=== PATIENT | male | born 1945 | race Caucasian/White ===

== ENCOUNTER 2017-01-14 11:04 | Emergency (ER) | payer OTHER ==
[~2017-01-14] VITALS: Ht 177.8 cm; Wt 81.6 kg
--- NOTE | 2017-01-14 11:09 | PHYS DOC ---
Past Medical History Past Medical History: High Cholesterol, Prostatitis Past Surgical History: Appendectomy, Other Additional Past Surgical Histo: bilateral hip replacements Alcohol Use: Occasionally Drug Use: None Adult General Chief Complaint Chief Complaint: URINARY RETENTION HPI HPI Patient is a 71 year old male who presents with. He states the last time he urinated was last night. He states he's been having suprapubic discomfort and that's why came in the ER. He had one episode of vomiting last night, he denies any vomiting this morning. States he feels fine now that he's had a Hein catheter placed he denies any nausea vomiting or abdominal pain at this time. Review of Systems Review of Systems Constitutional: Denies fever or chills [] Eyes: Denies change in visual acuity, redness, or eye pain [] HENT: Denies nasal congestion or sore throat [] Respiratory: Denies cough or shortness of breath [] Cardiovascular: No additional information not addressed in HPI [] GI: Denies abdominal pain, nausea, vomiting, bloody stools or diarrhea [] : Denies dysuria or hematuria [] Musculoskeletal: Denies back pain or joint pain [] Integument: Denies rash or skin lesions [] Neurologic: Denies headache, focal weakness or sensory changes [] Endocrine: Denies polyuria or polydipsia [] Allergies Allergies Allergies Coded Allergies Type Severity Reaction Last Updated Verified No Known Drug Allergies 10/15/14 No Physical Exam Physical Exam Constitutional: Well developed, well nourished, no acute distress, non-toxic appearance. [] HENT: Normocephalic, atraumatic, bilateral external ears normal, oropharynx moist, no oral exudates, nose normal. [] Eyes: PERRLA, EOMI, conjunctiva normal, no discharge. [] Neck: Normal range of motion, no tenderness, supple, no stridor. [] Cardiovascular:Heart rate regular rhythm, no murmur [] Lungs & Thorax: Bilateral breath sounds clear to auscultation [] Abdomen: Bowel sounds normal, soft, no tenderness, no masses, no pulsatile masses. [] Skin: Warm, dry, no erythema, no rash. [] Back: No tenderness, no CVA tenderness. [] Extremities: No tenderness, no cyanosis, no clubbing, ROM intact, no edema. [] Neurologic: Alert and oriented X 3, normal motor function, normal sensory function, no focal deficits noted. [] Psychologic: Affect normal, judgement normal, mood normal. [] Current Patient Data Vital Signs Vital Signs Date Time Temp Pulse Resp B/P (MAP) Pulse Ox O2 Delivery O2 Flow Rate FiO2 01/14/17 11:12 98.2 75 20 161/72 (101) 97 Room Air 98.2 Lab Values Laboratory Tests Test 01/14/17 11:25 01/14/17 12:20 Urine Collection Type Unknown Urine Color Yellow Urine Clarity Clear Urine pH 5.5 Urine Specific [place] 1.010 Urine Protein Negative mg/dL (NEG-TRACE) Urine Glucose (UA) Negative mg/dL (NEG) Urine Ketones (Stick) Trace mg/dL (NEG) Urine Blood Trace (NEG) Urine Nitrite Negative (NEG) Urine Bilirubin Negative (NEG) Urine Urobilinogen Dipstick 0.2 mg/dL (0.2 mg/dL) Urine Leukocyte Esterase Negative (NEG) Urine RBC Occ /HPF (0-2) Urine WBC 0 /HPF (0-4) Urine Squamous Epithelial Cells Occ /LPF Urine Bacteria 0 /HPF (0-FEW) Urine Mucus Slight /LPF White Blood Count 10.4 x10^3/uL (4.0-11.0) Red Blood Count 4.31 x10^6/uL (4.30-5.70) Hemoglobin 13.8 g/dL (13.0-17.5) Hematocrit 41.0 % (39.0-53.0) Mean Corpuscular Volume 95 fL (79-100) Mean Corpuscular Hemoglobin 32 pg (25-35) Mean Corpuscular Hemoglobin Concent 34 g/dL (31-37) Red Cell Distribution Width 14.0 % (11.5-14.5) Platelet Count 238 x10^3/uL (140-400) Neutrophils (%) (Auto) 90 % (31-73) H Lymphocytes (%) (Auto) 5 % (24-48) L Monocytes (%) (Auto) 4 % (0-9) Eosinophils (%) (Auto) 0 % (0-3) Basophils (%) (Auto) 0 % (0-3) Neutrophils # (Auto) 9.4 x10^3uL (1.8-7.7) H Lymphocytes # (Auto) 0.5 x10^3/uL (1.0-4.8) L Monocytes # (Auto) 0.4 x10^3/uL (0.0-1.1) Eosinophils # (Auto) 0.0 x10^3/uL (0.0-0.7) Basophils # (Auto) 0.0 x10^3/uL (0.0-0.2) Platelet Estimate Pending Sodium Level 135 mmol/L (136-145) L Potassium Level 4.5 mmol/L (3.5-5.1) Chloride Level 99 mmol/L (98-107) Carbon Dioxide Level 21 mmol/L (21-32) Anion Gap 15 (6-14) H Blood Urea Nitrogen 24 mg/dL (8-26) Creatinine 1.2 mg/dL (0.7-1.3) Estimated GFR (Cockcroft-Gault) 59.3 BUN/Creatinine Ratio 20 (6-20) Glucose Level 97 mg/dL (70-99) Calcium Level 9.2 mg/dL (8.5-10.1) Total Bilirubin 0.8 mg/dL (0.2-1.0) Aspartate Amino Transferase (AST) 25 U/L (15-37) Alanine Aminotransferase (ALT) 26 U/L (16-63) Alkaline Phosphatase 73 U/L (46-116) Total Protein 7.5 g/dL (6.4-8.2) Albumin 3.9 g/dL (3.4-5.0) Albumin/Globulin Ratio 1.1 (1.0-1.7) Laboratory Tests 01/14/17 12:20 Laboratory Tests 01/14/17 12:20 EKG EKG [] Radiology/Procedures Radiology/Procedures [] Impressions: Urinary retention Course & Med Decision Making Course & Med Decision Making Pertinent Labs and Imaging studies reviewed. (See chart for details) Abscess nonacute. Hein catheter was inserted without any issues. No signs of infections or renal failure. Patient's being discharged with urology follow-up at [facility]. Patient's agreeable plan and being discharged in stable condition this time. Dragon Disclaimer Dragon Disclaimer This electronic medical record was generated, in whole or in part, using a voice recognition dictation system. Departure Departure Impression: Primary Impression: Urinary retention Disposition: 01 HOME, SELF-CARE Condition: STABLE Referrals: NO PCP (PCP) Patient Instructions: Indwelling Urinary Catheter Care-Brief Additional Instructions: You have troubles urinating and therefore Hein catheter was placed. He does not show any signs of infection or other abnormalities at this time. He remained discharged home. Please follow-up with on [facility] urology group. Their addresses [address] [place] [address]. Office phone number: [phone] Return ER if you have severe pain, your Hein catheter is not draining, he developed fevers or other concerns. BARI VARELA MD Jan 14, 2017 11:09
[2017-01-14 11:12] VITALS: BP 161/72
[2017-01-14 11:36] LABS: BILIRUBIN,URINE NEGATIVE (NEG); GLUCOSE,URINE NEGATIVE (NEG); NITRITE,URINE NEGATIVE (NEG); PH,URINE 5.5; PROTEIN,URINE NEGATIVE (NEG-TRACE); UROBILINOGEN,URINE 0.2 mg/dL (0.2 mg/dL)
[2017-01-14 11:58] LABS: BACTERIA,URINE 0 /HPF (0-FEW); RBC,URINE OCC /HPF (0-2); SQUAMOUS EPITHELIAL CELL,UR OCC /LPF; WBC,URINE 0 /HPF (0-4)
[2017-01-14 12:28] LABS: BASO % 0 % (0-3); EOS % 0 % (0-3); HEMOGLOBIN 13.8 g/dL (13.0-17.5); LYMPH # 0.5 x10^3/uL (1.0-4.8); LYMPH % 5 % (24-48); MEAN CORPUSCULAR HEMOGLOBIN 32 pg (25-35); MEAN CORPUSCULAR HGB CONC 34 g/dL (31-37); MEAN CORPUSCULAR VOLUME 95 fL (79-100); MONO % 4 % (0-9); NEUT % 90 % (31-73); PLATELET COUNT 238 x10^3/uL (140-400); RED BLOOD COUNT 4.31 x10^6/uL (4.30-5.70); WHITE BLOOD COUNT 10.4 x10^3/uL (4.0-11.0)
[2017-01-14 12:51] LABS: CALCIUM 9.2 mg/dL (8.5-10.1); CREATININE 1.2 mg/dL (0.7-1.3); GFR 59.3; POTASSIUM 4.5 mmol/L (3.5-5.1)
[2017-01-14 12:58] LABS: ALBUMIN 3.9 g/dL (3.4-5.0); ALBUMIN/GLOBULIN RATIO 1.1 (1.0-1.7); TOTAL BILIRUBIN 0.8 mg/dL (0.2-1.0); TOTAL PROTEIN 7.5 g/dL (6.4-8.2)
[2017-01-14 13:59] LABS: PLT ESTIMATE ADEQUATE (ADEQUATE); TOXIC GRANULATION MOD
== END 2017-01-14 13:45 | disposition home or self-care (01) ==
LOC: ER 11:04
DX: R33.9 Retention of urine, unspecified (principal); R10.30 Lower abdominal pain, unspecified; R11.10 Vomiting, unspecified; E78.00 Pure hypercholesterolemia, unspecified; Z90.49 Acquired absence of other specified parts of digestive tract
CPT/HCPCS: 36415; 51702; 80053; 81001; 85007; 85025; 99284-25

== ENCOUNTER 2020-09-17 20:09 | Emergency (ER) | payer MEDICARE, OTHER ==
[~2020-09-17] VITALS: Ht 177.8 cm; Wt 75.0 kg
--- NOTE | 2020-09-17 20:25 | ED.ADGEN ---
Past Medical History Past Medical History: High Cholesterol, Prostatitis Additional Past Medical Histor: Lyme dx Past Surgical History: Appendectomy, Other Additional Past Surgical Histo: bilateral hip replacements Smoking Status: Never Smoker Alcohol Use: Occasionally Drug Use: None General Adult EDM: Chief Complaint: FLANK PAIN HPI: HPI: Patient is a 75 year old male coming in for right flank pain over the past few days. Patient says the pain comes and goes and is sharp. Says he has had urinary frequency without dysuria or hematuria. No fevers. States has had nonproductive occasional cough. States he has had some constipation and straining with small bowel movements. Recently had an ablation for A. fib and is currently anticoagulated with Eliquis. Denies any fevers or vomiting. Denies any history of kidney stones Review of Systems: Review of Systems: All other systems within normal limits except for as noted in the HPI Current Medications: Current Medications Medications (Trade) Dose Ordered Sig/Jakob Start Time Stop Time Status Last Admin Dose Admin Ceftriaxone Sodium (Rocephin) 1 gm 1X ONCE 09/17/20 23:00 09/17/20 23:01 UNV Fentanyl Citrate (Fentanyl 2ml Vial) 75 mcg 1X ONCE 09/17/20 20:30 09/17/20 20:31 DC 09/17/20 20:43 75 MCG Info (CONTRAST GIVEN -- Rx MONITORING) 1 each PRN DAILY PRN 09/17/20 21:45 09/19/20 21:44 Iohexol (Omnipaque 300 Mg/ml) 75 ml 1X ONCE 09/17/20 21:45 09/17/20 21:46 DC 09/17/20 21:44 75 ML Allergies: Allergies: Allergies Coded Allergies Type Severity Reaction Last Updated Verified No Known Drug Allergies 10/15/14 No Physical Exam: PE: Constitutional: Well developed, well nourished, no acute distress, non-toxic appearance. [] HENT: Normocephalic, atraumatic, bilateral external ears normal, nose normal. [] Eyes: PERRLA, conjunctiva normal, no discharge. [] Neck: No rigidity, supple, no stridor. [] Cardiovascular: Regular rate and rhythm, brisk cap refill [] Lungs & Thorax: Non labored symmetric respirations, no tachypnea or respiratory distress [] Abdomen: Soft, nondistended, right upper quadrant tenderness and guarding. Skin: Warm, dry, no erythema, no rash. [] Back: Unremarkable, no tenderness deformity of spine, right CVA tenderness Extremities: No deformities, range of motion grossly intact, no lower extremity edema [] Neurologic: Alert and oriented X 3, no focal deficits noted. [] Psychologic: Affect normal, judgement normal, mood normal. [] Current Patient Data: Labs: Laboratory Tests Test 09/17/20 20:40 09/17/20 22:32 White Blood Count 9.7 x10^3/uL (4.0-11.0) Red Blood Count 4.26 x10^6/uL (4.30-5.70) L Hemoglobin 13.3 g/dL (13.0-17.5) Hematocrit 38.6 % (39.0-53.0) L Mean Corpuscular Volume 91 fL (79-100) Mean Corpuscular Hemoglobin 31 pg (25-35) Mean Corpuscular Hemoglobin Concent 34 g/dL (31-37) Red Cell Distribution Width 14.0 % (11.5-14.5) Platelet Count 264 x10^3/uL (140-400) Neutrophils (%) (Auto) 71 % (31-73) Lymphocytes (%) (Auto) 16 % (24-48) L Monocytes (%) (Auto) 11 % (0-9) H Eosinophils (%) (Auto) 2 % (0-3) Basophils (%) (Auto) 1 % (0-3) Neutrophils # (Auto) 6.9 x10^3/uL (1.8-7.7) Lymphocytes # (Auto) 1.5 x10^3/uL (1.0-4.8) Monocytes # (Auto) 1.1 x10^3/uL (0.0-1.1) Eosinophils # (Auto) 0.2 x10^3/uL (0.0-0.7) Basophils # (Auto) 0.1 x10^3/uL (0.0-0.2) Sodium Level 139 mmol/L (136-145) Potassium Level 4.1 mmol/L (3.5-5.1) Chloride Level 104 mmol/L (98-107) Carbon Dioxide Level 24 mmol/L (21-32) Anion Gap 11 (6-14) Blood Urea Nitrogen 25 mg/dL (8-26) Creatinine 1.1 mg/dL (0.7-1.3) Estimated GFR (Cockcroft-Gault) 64.9 BUN/Creatinine Ratio 23 (6-20) H Glucose Level 103 mg/dL (70-99) H Calcium Level 9.2 mg/dL (8.5-10.1) Phosphorus Level 4.4 mg/dL (2.6-4.7) Magnesium Level 1.8 mg/dL (1.8-2.4) Total Bilirubin 0.7 mg/dL (0.2-1.0) Aspartate Amino Transferase (AST) 15 U/L (15-37) Alanine Aminotransferase (ALT) 33 U/L (16-63) Alkaline Phosphatase 77 U/L (46-116) Troponin I Quantitative < 0.017 ng/mL (0.000-0.055) MI-Pej-V-Type Natriuretic Peptide 179 pg/mL (0-449) Total Protein 6.8 g/dL (6.4-8.2) Albumin 3.7 g/dL (3.4-5.0) Albumin/Globulin Ratio 1.2 (1.0-1.7) Lipase 125 U/L (73-393) Urine Collection Type Unknown Urine Color Yellow Urine Clarity Clear Urine pH 5.5 (<5.0-8.0) Urine Specific [place] >=1.030 (1.000-1.030) Urine Protein Negative mg/dL (NEG-TRACE) Urine Glucose (UA) Negative mg/dL (NEG) Urine Ketones (Stick) Negative mg/dL (NEG) Urine Blood Trace (NEG) Urine Nitrite Negative (NEG) Urine Bilirubin Negative (NEG) Urine Urobilinogen Dipstick 1.0 mg/dL (0.2 mg/dL) Urine Leukocyte Esterase Large (NEG) Urine RBC Occ /HPF (0-2) Urine WBC >40 /HPF (0-4) Urine Bacteria Few /HPF (0-FEW) Urine Mucus Mod /LPF Laboratory Tests 09/17/20 20:40 Laboratory Tests 09/17/20 20:40 Vital Signs: Vital Signs Date Time Temp Pulse Resp B/P (MAP) Pulse Ox O2 Delivery O2 Flow Rate FiO2 09/17/20 22:30 65 18 143/73 (96) 99 Room Air 09/17/20 20:24 98.2 98.2 EKG: EKG: Sinus rhythm, heart rate 70 bpm, left axis deviation, left anterior fascicular block, no ST elevation or depression, no ectopy. [] Heart Score: C/O Chest Pain: No Risk Factors: Risk Factors: DM, Current or recent (<one month) smoker, HTN, HLP, family history of CAD, obesity. Risk Scores: Score 0 - 3: 2.5% MACE over next 6 weeks - Discharge Home Score 4 - 6: 20.3% MACE over next 6 weeks - Admit for Clinical Observation Score 7 - 10: 72.7% MACE over next 6 weeks - Early Invasive Strategies Radiology/Procedures: Radiology/Procedures: [facility] [address] [place] [address] IMAGING REPORT Signed PATIENT: KAYE WOODRUFF LACCOUNT: [id number] : 1945 LOCATION: ER AGE: 75 SEX: M EXAM STATUS: REG ER ORD. PHYSICIAN: ALONSO JAIMES MD REASON: right flank pain PROCEDURE: CT ABD PELV W/ IV CONTRST ONLY Study: CT abdomen/pelvis with intravenous contrast Indication: Right flank pain. Comparison: 11/14/2014 Technique: Helical CT imaging performed of the abdomen and pelvis after the intravenous administration of iodinated contrast. Sagittal and coronal reformats were obtained. One or more of the following individualized dose reduction techniques were utilized for this examination: 1. Automated exposure control 2. Adjustment of the mA and/or kV according to patient size 3. Use of iterative reconstruction technique. Findings: Calcific coronary artery disease. No acute abnormality seen to involve the lower lungs. A few areas of pleural mineralization. No focal hepatic parenchymal abnormality. Unremarkable gallbladder, biliary tree, pancreas, spleen and adrenal glands. Faint heterogeneous cortical attenuation at the upper pole of the right kidney, images 37 and 38 series 4. Perinephric fat stranding bilaterally also present on the comparison. No hydronephrosis. Hindered assessment of the urinary bladder due to streak artifact. Mild wall thickening. Incompletely evaluated prostate. Scattered diverticuli without diverticulitis. The cecum is again seen to extend into the right upper quadrant. The appendix is not well visualized. Mild constipation. Fecalization of enteric contents distally suggesting slowed transit. No pathologic dilatation. The stomach is incompletely evaluated due to underdistention. Tortuous aorta without aneurysmal dilatation. Multifocal calcific atherosclerosis. 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 In 2014 this vessel measured 1.7 cm representing no significant mold insert changer 6 years. No suspicious lymph nodes based on size. No free fluid or pneumoperitoneum. Osteopenia. Bilateral total hip arthroplasty constructs. Advanced multilevel spondylosis. Osseous neural foraminal stenosis at several locations in addition to central canal narrowing. Impression: 1. Faintly heterogeneous attenuation of the renal cortex at the upper pole on the right. This may be artifactual or chronic though mild pyelonephritis is possible especially given reported right flank pain. Recommend correlation with urinalysis. No collecting system obstruction or stone. 2. Mild constipation. 3. Multiple chronic findings described in the body the report. Electronically signed by: SASCHA SANCHEZ MD (09/17/2020 10:08 PM) [facility] DICTATED and SIGNED BY: SASCHA SANCHEZ MD DATE: 09/17/20 [id number] [] Course & Med Decision Making: Course & Med Decision Making Pertinent Labs and Imaging studies reviewed. (See chart for details) [] Dragon Disclaimer: Dragon Disclaimer: This electronic medical record was generated, in whole or in part, using a voice recognition dictation system. Departure Departure Impression: Primary Impression: Pyelonephritis Disposition: HOME / SELF CARE / HOMELESS Condition: STABLE Referrals: UNKNOWN PCP NAME (PCP) Patient Instructions: Pyelonephritis, Adult Additional Instructions: Taken [id number] stool softener such as MiraLAX or senna to prevent constipation while using hydrocodone. Scripts Hydrocodone/Acetaminophen (Hydrocodone-Acetamin 5-325 mg) 1 Each Tablet 1 EACH PO PRN Q6-8HRS PRN for PAIN for 3 Days, #10 TAB Prov: ALONSO JAIMES MD 09/17/20 Ondansetron (ONDANSETRON ODT) 4 Mg Tab.rapdis 1 TAB PO PRN Q6-8HRS PRN for NAUSEA for 3 Days, #10 TAB Prov: ALONSO JAIMES MD 09/17/20 Cephalexin (CEPHALEXIN) 500 Mg Capsule 1 CAP PO QID for antibiotic for 10 Days, #40 CAP Prov: ALONSO JAIMES MD 09/17/20 ALONSO JAIMES MD Sep 17, 2020 20:25
[2020-09-17] MEDS ORDERED: fentaNYL PF VIAL 100 MCG/2 ML VIAL IVP ONE (20:30)
[2020-09-17 20:52] LABS: BASO # 0.1 x10^3/uL (0.0-0.2); BASO % 1 % (0-3); EOS # 0.2 x10^3/uL (0.0-0.7); EOS % 2 % (0-3); HEMATOCRIT 38.6 % (39.0-53.0); HEMOGLOBIN 13.3 g/dL (13.0-17.5); LYMPH # 1.5 x10^3/uL (1.0-4.8); LYMPH % 16 % (24-48); MEAN CORPUSCULAR HEMOGLOBIN 31 pg (25-35); MEAN CORPUSCULAR HGB CONC 34 g/dL (31-37); MEAN CORPUSCULAR VOLUME 91 fL (79-100); MONO # 1.1 x10^3/uL (0.0-1.1); MONO % 11 % (0-9); NEUT # 6.9 x10^3/uL (1.8-7.7); NEUT % 71 % (31-73); PLATELET COUNT 264 x10^3/uL (140-400); RED BLOOD COUNT 4.26 x10^6/uL (4.30-5.70); WHITE BLOOD COUNT 9.7 x10^3/uL (4.0-11.0)
[2020-09-17 21:05] LABS: CALCIUM 9.2 mg/dL (8.5-10.1); CREATININE 1.1 mg/dL (0.7-1.3); GFR 64.9; POTASSIUM 4.1 mmol/L (3.5-5.1)
[2020-09-17 21:11] LABS: ALBUMIN 3.7 g/dL (3.4-5.0); ALBUMIN/GLOBULIN RATIO 1.2 (1.0-1.7); MAGNESIUM 1.8 mg/dL (1.8-2.4); PHOSPHORUS 4.4 mg/dL (2.6-4.7); TOTAL BILIRUBIN 0.7 mg/dL (0.2-1.0); TOTAL PROTEIN 6.8 g/dL (6.4-8.2)
[2020-09-17] MEDS ORDERED: IOHEXOL 300 MG/ML 100ML VIAL. IV ONE (21:45)
[2020-09-17] MEDS ORDERED: CONTRAST GIVEN. MC PRN (21:45)
--- NOTE | 2020-09-17 22:10 | RAD ---
Study: CT abdomen/pelvis with intravenous contrast Indication: Right flank pain. Comparison: 11/14/2014 Technique: Helical CT imaging performed of the abdomen and pelvis after the intravenous administratio n of iodinated contrast. Sagittal and coronal reformats were obtained. One or more of the following individualized dose reduction techniques were utilized for this examinat ion: 1. Automated exposure control 2. Adjustment of the mA and/or kV according to patient size 3. Use of iterative reconstruction technique. Findings: Calcific coronary artery disease. No acute abnormality seen to involve the lower lungs. A few areas o f pleural mineralization. No focal hepatic parenchymal abnormality. Unremarkable gallbladder, biliary tree, pancreas, spleen an d adrenal glands. Faint heterogeneous cortical attenuation at the upper pole of the right kidney, janee ges 37 and 38 series 4. Perinephric fat stranding bilaterally also present on the comparison. No hydr onephrosis. Hindered assessment of the urinary bladder due to streak artifact. Mild wall thickening. Incompletely evaluated prostate. Scattered diverticuli without diverticulitis. The cecum is again seen to extend into the right upper quadrant. The appendix is not well visualized. Mild constipation. Fecalization of enteric contents di stally suggesting slowed transit. No pathologic dilatation. The stomach is incompletely evaluated due to underdistention. Tortuous aorta without aneurysmal dilatation. Multifocal calcific atherosclerosis. Aneurysmal dilatat ion of the common iliac artery measuring up to 1.8 cm. In 2014 this vessel measured 1.7 cm representi ng no significant chemical cell changer 6 years. No suspicious lymph nodes based on size. No free fluid or pneumoperitoneum. Osteopenia. Bilateral total hip arthroplasty constructs. Advanced multilevel spondylosis. Osseous vlad ral foraminal stenosis at several locations in addition to central canal narrowing. Impression: 1. Faintly heterogeneous attenuation of the renal cortex at the upper pole on the right. This may be artifactual or chronic though mild pyelonephritis is possible especially given reported right flank pain. Recommend correlation with urinalysis. No collecting system obstruction or stone. 2. Mild constipation. 3. Multiple chronic findings described in the body the report. Electronically signed by: SASCHA SANCHEZ MD (09/17/2020 10:08 PM) [facility]
[2020-09-17 22:45] LABS: BILIRUBIN,URINE NEGATIVE (NEG); CLARITY,URINE CLEAR; COLOR,URINE YELLOW; NITRITE,URINE NEGATIVE (NEG); PH,URINE 5.5 (<5.0-8.0); PROTEIN,URINE NEGATIVE (NEG-TRACE)
[2020-09-17 22:55] LABS: BACTERIA,URINE FEW /HPF (0-FEW); RBC,URINE OCC /HPF (0-2); WBC,URINE >40 /HPF (0-4)
[2020-09-17] MEDS ORDERED: cefTRIAXone IV Push 1 GM VIAL. IVP ONE (23:00)
[2020-09-17] MEDS ORDERED: HYDR-2759 PO (23:07)
[2020-09-17] MEDS ORDERED: CEPH500C PO (23:07)
[2020-09-17] MEDS ORDERED: ONDA4TAB12 PO (23:07)
--- NOTE | 2020-09-17 23:09 | EKG ---
[facility] [address] [place] [address] Test Date: 2020-09-17 Test Time: 20:32:38 Pat Name: KAYE WOODRUFF Department: Room: Gender: M [employer]: : 1945 Requested By: ALONSO JAIMES Order Number: [id number] Reading MD: Measurements Intervals [place] Rate: 70 P: 0 AL: 196 QRS: -33 QRSD: 98 T: 19 QT: 426 QTc: 463 Interpretive Statements SINUS RHYTHM ABNORMAL LEFT AXIS DEVIATION LEFT ANTERIOR FASCICULAR BLOCK ABNORMAL ECG RI6.01 No previous ECG available for comparison
[2020-09-17 23:14] VITALS: BP 130/63
[2020-09-17] MEDS ORDERED: HYDROcodone/APAP 5/325MG 1 TAB TABLET PO ONE (23:15)
== END 2020-09-17 23:41 | disposition home or self-care (01) ==
LOC: ER 20:09
DX: N12 Tubulo-interstitial nephritis, not specified as acute or chronic (principal); E78.00 Pure hypercholesterolemia, unspecified; Z90.89 Acquired absence of other organs
CPT/HCPCS: 36415; 74177; 80053; 81001; 83690; 83735; 83880; 84100; 84484; 85025; 87086; 93005; 96374; 96375; 99284; J0696; J3010; Q9967; 99285-25

== ENCOUNTER 2020-11-07 12:10 | Emergency (ER) | payer MEDICARE ==
[~2020-11-07] VITALS: Ht 176.5 cm; Wt 79.5 kg
[~2020-11-07 12:10] MED LIST: CEPH500C PO; HYDR-2759 PO; ONDA4TAB12 PO
[2020-11-07 12:44] LABS: BILIRUBIN,URINE NEGATIVE (NEG); CLARITY,URINE CLEAR; COLOR,URINE YELLOW; NITRITE,URINE NEGATIVE (NEG); PROTEIN,URINE NEGATIVE (NEG-TRACE)
[2020-11-07] MEDS ORDERED: IV NORMAL SALINE 1000ML BAG 1,000 ML IV ONE (13:00)
[2020-11-07 13:05] LABS: RBC,URINE 0 /HPF (0-2)
[2020-11-07 13:06] LABS: BACTERIA,URINE 0 /HPF (0-FEW)
[2020-11-07 13:20] LABS: BASO % 1 % (0-3); EOS # 0.2 x10^3/uL (0.0-0.7); EOS % 2 % (0-3); HEMATOCRIT 37.2 % (39.0-53.0); HEMOGLOBIN 12.5 g/dL (13.0-17.5); LYMPH # 1.3 x10^3/uL (1.0-4.8); LYMPH % 14 % (24-48); MEAN CORPUSCULAR HEMOGLOBIN 32 pg (25-35); MEAN CORPUSCULAR HGB CONC 34 g/dL (31-37); MEAN CORPUSCULAR VOLUME 95 fL (79-100); MONO # 1.2 x10^3/uL (0.0-1.1); MONO % 13 % (0-9); NEUT # 6.4 x10^3/uL (1.8-7.7); NEUT % 71 % (31-73); PLATELET COUNT 290 x10^3/uL (140-400); RED BLOOD COUNT 3.93 x10^6/uL (4.30-5.70); RED CELL DISTRIBUTION WIDTH 17.1 % (11.5-14.5); WHITE BLOOD COUNT 9.1 x10^3/uL (4.0-11.0)
--- NOTE | 2020-11-07 13:20 | PHYS DOC ---
Past Medical History Past Medical History: High Cholesterol, Prostatitis Additional Past Medical Histor: Lyme dx, PROSTATE [place], PYELONEPHRITIS, Past Surgical History: Appendectomy, Other Additional Past Surgical Histo: bilateral hip replacements, ablation cardiac Smoking Status: Never Smoker Alcohol Use: Occasionally Drug Use: None General Adult EDM: Chief Complaint: LOWER BACK PAIN OR INJURY HPI: HPI: 75-year-old male presenting the emergency department today with right-sided flank pain. He has a history of pyelonephritis and describes very similar symptoms. It is a throbbing aching pain on the right flank which is nonradiating without alleviating factors. Review of systems negative for chest pain shortness of breath. He denies vomiting fevers chills. He has had some changes in urinary frequency. All other review of systems negative. Heart Score: C/O Chest Pain: No Risk Factors: Risk Factors: DM, Current or recent (<one month) smoker, HTN, HLP, family hist ory of CAD, obesity. Risk Scores: Score 0 - 3: 2.5% MACE over next 6 weeks - Discharge Home Score 4 - 6: 20.3% MACE over next 6 weeks - Admit for Clinical Observation Score 7 - 10: 72.7% MACE over next 6 weeks - Early Invasive Strategies Current Medications: Current Medications Medications (Trade) Dose Ordered Sig/Jakob Start Time Stop Time Status Last Admin Dose Admin Sodium Chloride 1,000 ml @ 1,000 mls/hr 1X ONCE 11/07/20 13:00 11/07/20 13:59 Allergies: Allergies: Allergies Coded Allergies Type Severity Reaction Last Updated Verified No Known Drug Allergies 10/15/14 No Physical Exam: PE: Constitutional: Well developed, well nourished, no acute distress, non-toxic appearance. [] HENT: Normocephalic, atraumatic, bilateral external ears normal, oropharynx moist, no oral exudates, nose normal. [] Eyes: PERRLA, EOMI, conjunctiva normal, no discharge. [] Neck: Normal range of motion, no tenderness, supple, no stridor. [] Cardiovascular:Heart rate regular rhythm, no murmur [] Lungs & Thorax: Bilateral breath sounds clear to auscultation [] Abdomen: Bowel sounds normal, soft, no tenderness, no masses, no pulsatile masses. [] Patient has right-sided CVA tenderness. Negative McBurney's point. Negative Mcgovern sign. Skin: Warm, dry, no erythema, no rash. [] Back: No tenderness, no CVA tenderness. [] Extremities: No tenderness, no cyanosis, no clubbing, ROM intact, no edema. [] Neurologic: Alert and oriented X 3, normal motor function, normal sensory function, no focal deficits noted. [] Psychologic: Affect normal, judgement normal, mood normal. [] Current Patient Data: Labs: Laboratory Tests Test 11/07/20 12:30 Urine Collection Type Void Urine Color Yellow Urine Clarity Clear Urine pH 6.0 (<5.0-8.0) Urine Specific [place] 1.015 (1.000-1.030) Urine Protein Negative mg/dL (NEG-TRACE) Urine Glucose (UA) Negative mg/dL (NEG) Urine Ketones (Stick) Negative mg/dL (NEG) Urine Blood Negative (NEG) Urine Nitrite Negative (NEG) Urine Bilirubin Negative (NEG) Urine Urobilinogen Dipstick 1.0 mg/dL (0.2 mg/dL) Urine Leukocyte Esterase Trace (NEG) Urine RBC 0 /HPF (0-2) Urine WBC 5-10 /HPF (0-4) Urine Squamous Epithelial Cells Few /LPF Urine Bacteria 0 /HPF (0-FEW) Vital Signs: Vital Signs Date Time Temp Pulse Resp B/P (MAP) Pulse Ox O2 Delivery O2 Flow Rate FiO2 11/07/20 12:47 98.6 62 12 120/64 (85) 95 Room Air 98.6 EKG: EKG: [] Radiology/Procedures: Radiology/Procedures: [] Course & Med Decision Making: Course & Med Decision Making Pertinent Labs and Imaging studies reviewed. (See chart for details) [] 75-year-old male presenting with right-sided flank pain. Afebrile normal heart rate. Blood pressure within normal limits. CBC shows a normal white blood cell count. Hemoglobin 12.5. Chemistry panel unremarkable. Lactic acid within normal limits. Urinalysis negative for nitrates. Trace leuk esterase. No bacteria. CT shows persistent mild hypoattenuation which may reflect focal pyelonephritis. UA is equivocal. We will cover with oral Keflex for 10 days with Flexeril for pain. Patient comfortable with plan. Yana Disclaimer: Yana Disclaimer: This electronic medical record was generated, in whole or in part, using a voice recognition dictation system. Departure Departure Impression: Primary Impression: Flank pain Disposition: HOME / SELF CARE / HOMELESS Condition: STABLE Referrals: RANI METZ MD (PCP) Patient Instructions: Back Pain, Adult, Pyelonephritis, Adult Additional Instructions: EMERGENCY DEPARTMENT GENERAL DISCHARGE INSTRUCTIONS Follow-up with your primary physician in 1 to 2 days. Return to the emergency department if you have any new or concerning findings. Thank you for coming to [facility] Emergency Department (ED) today and trusting us with you care. We trust that you had a positive experience in our Emergency Department. If you wish to speak to the department management, you may call the Director at [phone]. Follow up is important in emergency/acute care visits. This condition should be evaluated by your primary care physician and any necessary consulting services for continued management within a few days (1-2) after discharge. Return to the emergency department if you have any new or concerning symptoms including but not limited to fever, chills, nausea, vomiting, intractable pain, any new rashes, chest pain, shortness of breath, uncontrolled bleeding, difficulty breathing, and/or vision loss. 1. Do you have a private Doctor? If you do not have a private doctor, please ask for a resource list of physicians or clinics that may be able to assist you with follow up care. 2. If a lab test or culture has been done and does not come back immediately, your results will be reviewed and you will be notified if you need a change in treatment. 3. Your care today has been supervised by a physician who is specially trained in emergency care. Many problems require more than one evaluation for a complete diagnosis and treatment. We recommend that you schedule your follow up appointment as recommended to ensure complete treatment of you illness or injury. If you are unable to obtain follow up care and continue to have a problem, or if your condition worsens, we recommend that you return to the ED. 4. We are not able to safely determine your condition over the phone nor are we able to give sound medical advice over the phone. For these safety reasons, if you call for medical advice we will ask you to come to the ED for further evaluation. IF YOUR SYMPTOMS WORSEN OR NEW SYMPTOMS DEVELOP, OR YOU HAVE CONCERNS ABOUT YOUR CONDITION; OR IF YOUR CONDITION WORSENS WHILE YOU ARE WAITING FOR YOUR FOLLOW UP APPOINTMENT; EITHER CONTACT YOUR PRIMARY CARE DOCTOR, THE PHYSICIAN WHOSE NAME AND NUMBER YOU WERE GIVEN, OR RETURN TO THE ED IMMEDIATELY. Scripts Cephalexin (KEFLEX) 750 Mg Capsule 1 CAP PO BID for 10 Days, #20 CAP 0 Refills Prov: STARR GUTIERREZ MD 11/07/20 Cyclobenzaprine Hcl (CYCLOBENZAPRINE HCL) 5 Mg Tablet 1 TAB PO TID PRN for BACK PAIN, #8 TAB 0 Refills Prov: STARR GUTIERREZ MD 11/07/20 STARR GUTIERREZ MD Nov 07, 2020 13:20
[2020-11-07 13:26] LABS: CALCIUM 8.9 mg/dL (8.5-10.1); CREATININE 0.9 mg/dL (0.7-1.3); GFR 81.8; POTASSIUM 4.1 mmol/L (3.5-5.1)
[2020-11-07 13:32] LABS: ALBUMIN 3.2 g/dL (3.4-5.0); DIRECT BILIRUBIN 0.2 mg/dL (0.0-0.2); TOTAL BILIRUBIN 0.8 mg/dL (0.2-1.0); TOTAL PROTEIN 6.5 g/dL (6.4-8.2)
[2020-11-07] MEDS ORDERED: IOHEXOL 300 MG/ML 100ML VIAL. IV ONE (14:30)
[2020-11-07] MEDS ORDERED: CONTRAST GIVEN. MC PRN (14:45)
--- NOTE | 2020-11-07 15:11 | RAD ---
Exam: CT abdomen and pelvis with contrast INDICATION: Right flank pain TECHNIQUE: Sequential axial images through the abdomen and pelvis obtained following the administrati on of 75 mL of Omni 300 IV contrast. Sagittal and coronal reformatted images were reconstructed from the axial data and reviewed. Exposure: One or more of the following in the visualized dose reduction techniques were utilized for this examination: 1. Automated exposure control 2. Adjustment of the MA and/or KV according to patient size 3. Use of iterative of reconstructive technique Comparisons: 09/17/2020 FINDINGS: Heart size is normal. No pericardial strandy opacities the dependent portion lungs likely representin g atelectasis. No pleural effusion. Liver, spleen, pancreas, gallbladder and adrenals are unremarkable. No perinephric inflammation or hydronephrosis. This is an area of a hypoenhancement at the upper pole the right kidney. No renal or ureteral calculi are identified. Bladder is partially distended and appears thin-walled. Prostate is not enlarged. Diverticulosis without evidence of acute diverticulitis. Otherwise, Large and small bowel are unremar kable. Appendix is not identified. No free intra-abdominal air or fluid. No obstruction. Abdominal aorta has a normal course and caliber. Abdominal vasculature is patent. No enlarged abdominal lymph nodes are identified. No suspicious osseous lesions acute fractures. IMPRESSION: Persistent mild hypoenhancement of the upper pole of the right kidney nonspecific as before could rel ate to a mild focal pyelonephritis. Other differential considerations include sequela of prior injury . Correlate with urinalysis. Electronically signed by: Robert Ahn MD (11/07/2020 3:09 PM) [place]
[2020-11-07 17:16] VITALS: BP 121/62
[2020-11-07] MEDS ORDERED: CEPH750C9 PO (17:21)
[2020-11-07] MEDS ORDERED: CYCL5TAB PO (17:21)
== END 2020-11-07 17:35 | disposition home or self-care (01) ==
LOC: ER 12:10
DX: R10.9 Unspecified abdominal pain (principal); E78.00 Pure hypercholesterolemia, unspecified; Z90.89 Acquired absence of other organs
CPT/HCPCS: 36415; 74177; 80048; 80076; 81001; 83605; 83690; 85025; 87086; 96360; 99284; J7030; Q9967

== ENCOUNTER → 2020-12-18 | Outpatient (CLI) | payer MEDICARE ==
[~2020-12-18] MED LIST changes: +AMLO-187 PO; +AMOX875T PO; +APIX5TAB PO; +ASCO500C PO; +CEPH750C9 PO; +CYCL5TAB PO; +EZET10TA20 PO; +GABA-585 PO; +LIPITOR80 MG PO; +METO25TA2 PO; +OMEG1CAP38 PO; +PANT40TA77 PO; +[UNRECOGNIZED DRUG - CODE] PO
--- NOTE | 2020-12-18 12:40 | PDOC1 ---
INITIAL PAIN CONSULT DATE OF SERVICE: DOS: DATE: 12/18/20 TIME: 12:33 CHIEF COMPLAINT: Chief Complaint: Low back and right lower extremity pain HISTORY OF PRESENT ILLNESS: 75-year-old male presents history of pain low back right lower extremity for about 10 years and he fell about 4 years ago and hurt his right hip area but pain became much worse over the past year where normal modalities are not decreasing the pain patient has had physical therapy said chiropractic treatment in the past is doing exercise currently also had trigger point injections which none of these have been long-lasting help but do decrease the pain mildly patient reports he still doing the exercises from his physical therapy training reports the pain is in the low back bilaterally and travels into the right leg posterior gluteus posterior lateral thigh lateral anterior thigh anteromedial thigh medial lower leg and posterior calf as well as to the ankle on the right side with walking standing patient reports is better with sitting or laying down can awaken him sleep maybe once a night patient reports does not affect his bowel bladder control but does affect his ability to walk however is not use any assistive devices. Patient scribes pain is constant sharp stabbing throbbing and shooting in the leg on the right side intermittent intensity in the back changes during the day and with activity cramping in the back as well patient rates disability rating 0-10 10 made worse as before standing responsibilities and social activity and sexual behavior 8 with recreation 3 with occupational behavior to with self-care life support activities. Patient did have plain films of the lumbar spine showing normal sacrum and coccyx with marked disc space narrowing and vacuum disc changes present at the L4-5 and L5-S1 levels. Patient has been taking [id number] anti-inflammatories Motrin as well as analgesics Tylenol with mild decrease in pain but only by about 30%. PAST MEDICAL HISTORY: PMH: Hypertension, arthritis, gastroesophageal reflux, atrial fibrillation, recent kidney infection PREVIOUS SURGERIES: Past Surgical Hx: Bilateral hip replacements, appendectomy, prostate surgery, cardiac ablation CURRENT MEDICATIONS: Current Meds: Active Scripts Medications Dose Route/Sig Max Daily Dose Days Date Category Amoxicillin 875 Mg Tablet 1 Tab PO DAILY 12/18/20 Reported Gabapentin (Gabapentin) 100 Mg Capsule 100 Mg PO BID 12/18/20 Reported Pantoprazole Sodium (Pantoprazole Sodium) 40 Mg Tablet.dr 40 Mg PO DAILYAC 12/18/20 Reported [place] 3 Fish Oil Softgel ([place]trim-3 Fatty Acids/Fish Oil) 1 Each Capsule.dr 1 Each PO DAILY 12/18/20 Reported Toprol Xl (Metoprolol Succinate) 25 Mg Tab.er.24h 12.5 Mg PO DAILY 12/18/20 Reported Glucosamine Sulfate 500 Mg Capsule 500 Mg PO DAILY 12/18/20 Reported Zetia (Ezetimibe) 10 Mg Tablet 1 Tab PO DAILY 30 12/18/20 Reported Lipitor (Atorvastatin Calcium) 80 Mg Tablet 1 Tab PO DAILY 12/18/20 Reported Vitamin C (Ascorbic Acid) 500 Mg Capsule.er 1 Cap PO DAILY 30 12/18/20 Reported Eliquis (Apixaban) 5 Mg Tablet 5 Mg PO BID 12/18/20 Reported Amlodipine Besylate 10 Mg Tablet 10 Mg PO DAILY 12/18/20 Reported ALLERGIES; Allergies: Coded Allergies: No Known Drug Allergies (Unverified , 10/15/14) FAMILY HISTORY: Family Hx: Heart disease and cancers SOCIAL HISTORY: Social Hx: Patient drinks about 3 alcoholic drinks maybe twice a week does not smoke does not use any illegal illicit or recreational drugs, is lives with his spouse lives locally in [facility] and 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 PHYSICAL EXAM: VS: Blood pressure is 118/65 pulse 73 respirations 16 temperature 98.1 F height is 5 feet 10 inches weight 174 pounds. PE: PHYSICAL EXAMINATION: GENERAL: The patient is awake, alert, oriented, appropriate, very pleasant in demeanor. HEENT: Shows normocephalic, atraumatic. Extraocular movements are intact and symmetrical. Oral cavity: Mucous membranes moist and pink. NECK: Shows anterior throat supple without palpable lymphadenopathy noted. Swallow reflex symmetrical. CHEST: Shows normal on inspection. Breath sounds are clear bilaterally, distant but no rales or rhonchi auscultated. HEART: Shows S1, S2 clear. No murmurs auscultated. ABDOMEN: Soft, nontender, nondistended, obese. No palpable organomegaly is noted. No rebound or guarding demonstrated. BACK: Shows spine grossly in the midline. Normal-appearing cervical lordotic curvature. There is increased thoracic kyphosis, some minor flattening of the lumbar lordotic curvature. Lumbar paraspinous muscles show symmetrical on inspection, on palpation shows some moderate tenderness diffusely throughout the upper, middle and lower distribution of the paraspinous muscles bilaterally and also into the lower thoracic paraspinous musculature, firm and tender, but witho ut specific trigger points, without radiation of pain. The patient has good rotational motion of the lumbar spine, both laterally as well as extension and flexion without significant difficulty. No tenderness over the spinous processes, sacrum or sacroiliac regions. EXTREMITIES: Lower extremities show deep tendon reflexes 1 in the patellar and tendo calcaneus tendons. Motor exam is 4 on a scale of 5 with right dorsiflexion, extension, quadriceps and hamstring flexion and 5/5 on the left. Peripheral pulses are 1 posterior tibial. No peripheral edema is noted bilaterally. Lower extremities are warm and dry to touch, equal in color and appearance. Straight leg raise noted to be positive on the right about 35 degrees, left side is negative. Gaenslen's and Juan Antonio's maneuvers are negative bilaterally. The patient is able to stand, stand on his toes without significant difficulty or loss of balance, walks with a slight favoring gait does appear to favor the right lower extremity slightly but is not use any assistive devices to ambulate. SKIN: Shows warm and dry, good turgor. No edema. No sores, rashes or bruising throughout. IMPRESSION: Impression: 75-year-old male with long history low back right lower extremity pain worse over the past year in a radicular fashion following L4-5 dermatomal distribution. Plain films lumbar spine as noted Arthritis Hypertension Esophageal reflux Anticoagulation therapy with Eliquis Plan: Options were discussed with the patient including continued physical therapies interventional techniques and medication management. Patient would like to pursue interventional techniques. We discussed a lumbar epidural steroid injection using description as well as anatomical models to describe the procedure. Patient will wait for preauthorization with his insurance provider also clearance with his tube depatcher to hold his Eliquis for 3 days prior to potential interventional treatment. Once approved, we will plan on translaminar approach L4-5 level lumbar epidural steroid injection with fluoroscopic guidance at that time. In the meantime, will prescribe Medrol Dosepak patient was given instructions well side effects aware with the medication. SOTERO JONES MD Dec 18, 2020 12:40
== END | disposition home or self-care (01) ==
LOC: PNCL 10:13
PROVIDERS: ATTEND Anesthesiology
DX: M54.5 Low back pain (principal); M79.604 Pain in right leg; I10 Essential (primary) hypertension; M19.90 Unspecified osteoarthritis, unspecified site; K21.9 Gastro-esophageal reflux disease without esophagitis; I48.91 Unspecified atrial fibrillation; Z79.899 Other long term (current) drug therapy; Z98.890 Other specified postprocedural states
CPT/HCPCS: G0463

== ENCOUNTER → 2021-01-01 | Outpatient (CLI) | payer MEDICARE ==
[~2021-01-01] MED LIST changes: +IOHEXOL 180 MG/ML 10 ML VIAL. ONE; +methylPREDNISolone ACETATE 80 MG/ML VIAL. ONE
--- NOTE | 2021-01-01 10:07 | PDOC ---
Progress Note - Pain Clinic Date of Service: DOS: DATE: 01/01/21 TIME: 10:04 Diagnosis: Dx: Lumbar radiculopathy with lumbar degenerative disc disease History or Present Illness: HPI: 75-year-old returns for follow-up status post initial evaluation and preauthorization with [employer] for right lumbar epidural steroid traction patient reports pain is changed somewhat is in the right leg was still most painful but now has some in the left leg as well as across the low back bilaterally worse initially which is on the right side patient reports this is been more noticeable when he is walking standing playing golf bending and moving better with sitting or laying down generally does not awaken from sleep at night patient reports pain is a 7 on scale 10 is worse over the past week 7 on average for its least and is a 4 today patient reports cramping and sharp aching in the low back and the bilateral lower extremities now more on the right posterior gluteus lateral thigh anterior thigh medial thigh but also in the left lateral thigh and medial thigh as well patient reports it radiates further on the right side and the left side is only been increased like this for about a week or so without any specific new injury or accident that he is aware of. Patient has been off of his Eliquis now for about 5 days. Patient reports no bowel or bladder incontinence. Physical Exam: VS: Blood pressure is 132/76 pulse 73 respirations 18 pulse 98.2 F weight is 173 pounds PE: PHYSICAL EXAMINATION: GENERAL: The patient is awake, alert, oriented, appropriate, very pleasant demeanor HEENT: Shows normocephalic, atraumatic. Extraocular movements are intact and symmetrical. Oral cavity: Mucous membranes moist and pink. NECK: Shows anterior throat supple without palpable lymphadenopathy noted. Swallow reflex symmetrical. CHEST: Shows normal on inspection. Breath sounds are clear bilaterally, distant but no rales or rhonchi. HEART: Shows S1, S2 clear. No murmurs auscultated. ABDOMEN: Soft, nontender, nondistended. No palpable organomegaly is noted. BACK: Shows spine grossly in the midline. Normal-appearing cervical lordotic curvature. There is slightly increased thoracic kyphosis, some minor flattening of the lumbar lordotic curvature. Lumbar paraspinous muscles show symmetrical on inspection, on palpation shows some moderate tenderness diffusely throughout the upper, middle and lower distribution of the paraspinous muscles, but without specific trigger points, without radiation of pain. The patient has good rotational motion of the lumbar spine, both laterally as well as extension and flexion without significant difficulty. EXTREMITIES: Lower extremities show deep tendon reflexes 1 in the patellar and tendo calcaneus tendons. Motor exam is 4 on a scale of 5 with right dorsiflexion, extension, quadriceps and hamstring flexion and 5/5 on the left. Peripheral pulses are 1+ posterior tibial. No peripheral edema is noted bilaterally. Lower extremities are warm and dry to touch, equal in color and appearance. SKIN: Shows warm and dry, good turgor. No edema. No sores, rashes or bruising throughout. Procedure: Procedure: Options discussed with the patient. Patient chart was reviewed his current medication regimen updated current review of systems updated today as well. We will proceed with a lumbar epidural steroid injection today with fluoroscopic guidance. Risks were discussed including but not limited to: Bleeding, infection, possibility of epidural hematoma and subsequent neurological compromise, dural puncture, headaches, spinal cord and/or nerve damage, side effects of steroid medication, and poor results regarding pain control. Patient understands and wished to proceed. Patient return to clinic in approximate 2 weeks for follow-up, was counseled as to return appointment, activity level, and side effects be aware of. Medication Injected: Med Injected: Procedure is lumbar epidural steroid injection under local anesthetic using sterile prep and drape at the L4-5 level using C-arm fluoroscopic guidance in both AP and lateral views medications injected is 120 mg Depo-Medrol +10mL preservative-free normal saline and 2 mL contrast- condition at discharge is stable patient tolerated procedure well had no complications. Condition at Discharge: Condition at Discharge: Condition at discharge stable, patient tolerated procedure well and had no complications. SOTERO JONES MD Jan 01, 2021 10:07
--- NOTE | 2021-01-01 10:08 | PDOC4 ---
Procedure Note: ICD 10 Code: ICD 10 Code: M 54.16 M 51.36 Procedure Note: Patient was consented for lumbar epidural steroid injection with fluoroscopic guidance. Risks were discussed including but not limited to: Bleeding, infection, possibility of epidural hematoma and subsequent neurological compromise, dural puncture, headaches, spinal cord and/or nerve damage, side effects of steroid medication, and poor results regarding pain control. Patient understands and wished to proceed. Procedure is lumbar epidural steroid injection under local anesthetic using sterile prep and drape at the L4-5 level using C-arm fluoroscopic guidance in both AP and lateral views medications injected is 120 mg Depo-Medrol +10mL preservative-free normal saline and 2 mL contrast- condition at discharge is stable patient tolerated procedure well had no complications. SOTERO JONES MD Jan 01, 2021 10:08
== END | disposition home or self-care (01) ==
LOC: PNCL 09:28
PROVIDERS: ATTEND Anesthesiology
DX: M51.16 Intervertebral disc disorders with radiculopathy, lumbar region (principal); Z79.899 Other long term (current) drug therapy
CPT/HCPCS: 62323; J1040; Q9965

== ENCOUNTER → 2021-01-15 | Outpatient (CLI) | payer MEDICARE ==
[~2021-01-15] MED LIST changes: -IOHEXOL 180 MG/ML 10 ML VIAL. ONE; -methylPREDNISolone ACETATE 80 MG/ML VIAL. ONE
--- NOTE | 2021-01-15 09:21 | PDOC ---
Progress Note - Pain Clinic Date of Service: DOS: DATE: 01/15/21 TIME: 09:15 Diagnosis: Dx: Lumbar radiculopathy with lumbar degenerative disc disease History or Present Illness: HPI: 75-year-old male returns for follow-up status post lumbar epidural steroid injection x1. Patient reports about 75% improvement in the low back and right lower extremity for the first 2 weeks after the injection now the pain is beginning to return in the low back right lower extremity posterior gluteus posterior lateral thigh lateral anterior thigh anteromedial thigh medial lower leg with walking standing changing positions patient reports initially though he is doing much better still with overall about 50% improvement even after this day patient reports is aching pain the low back right leg is cramping and stabbing can be tight and shooting as well worse with walking standing changing positions although patient has been able to exercise better he has been playing golf with greater ease and comfort travel with greater ease doing distance walki ng greater and household activities much greater ease and sleeping better at night patient reports is not awakening from sleep at this time. Patient describes the pain is a 6 on scale 10 is worse over the past week 3 on average 3 its least and is a 3 today. Patient reports still pain swelling of the right lower extremity radicular fashion following L4-5 dermatomal distribution but much improved. Patient continues with stretching strength exercises on his own as well as oral analgesics as Tylenol Physical Exam: VS: Blood pressure is 120/76 pulse 68 respirations 18 temperature 97.9 F weight is 173 pounds PE: PHYSICAL EXAMINATION: GENERAL: The patient is awake, alert, oriented, appropriate, very pleasant in demeanor HEENT: Shows normocephalic, atraumatic. Extraocular movements are intact and symmetrical. Oral cavity: Mucous membranes moist and pink. NECK: Shows anterior throat supple without palpable lymphadenopathy noted. Swallow reflex symmetrical. CHEST: Shows normal on inspection. Breath sounds are clear bilaterally, no rales rhonchi wheezes auscultated. HEART: Shows S1, S2 clear. No murmurs auscultated. ABDOMEN: Soft, nontender, nondistended, obese. No palpable organomegaly is noted. BACK: Shows spine grossly in the midline. Normal-appearing cervical lordotic curvature. There is slightly increased thoracic kyphosis, some flattening of the lumbar lordotic curvature. Lumbar paraspinous muscles show symmetrical on inspection, on palpation shows some moderate tenderness diffusely throughout the upper, middle and lower distribution of the paraspinous muscles, but without specific trigger points, without radiation of pain. The patient has good rotational motion of the lumbar spine, both laterally as well as extension and flexion without significant difficulty. EXTREMITIES: Lower extremities show deep tendon reflexes 1+ in the patellar and tendo calcaneus tendons. Motor exam is 4 on a scale of 5 with right dorsiflexion, extension, quadriceps and hamstring flexion and 5/5 on the left. Peripheral pulses are 1+ posterior tibial. No peripheral edema is noted bilaterally. Lower extremities are warm and dry to touch, equal in color and appearance. SKIN: Shows warm and dry, good turgor. No edema. No sores, rashes or bruising throughout. Procedure: Procedure: Options were discussed with patient. Patient chart reviewed his current medication regimen updated current review of systems updated today as well. We will preauthorize patient for a additional lumbar epidural steroid injection he did very well after the first injection about 75% improvement for the first few weeks now pain returning but still doing much better with radicular pain in an L4-5 dermatomal distribution on the right side. Once approved, patient will return for a lumbar epidural steroid injection translaminar approach at the L4-5 level with fluoroscopic guidance. In the meantime, patient will continue with stretching strength exercises exercising as tolerated and oral analgesics as currently Medication Injected: Med Injected: None Condition at Discharge: Condition at Discharge: Condition at discharge is stable. SOTERO JONES MD Jan 15, 2021 09:21
== END | disposition home or self-care (01) ==
LOC: PNCL 08:49
PROVIDERS: ATTEND Anesthesiology
DX: M51.16 Intervertebral disc disorders with radiculopathy, lumbar region (principal); Z79.899 Other long term (current) drug therapy
CPT/HCPCS: 99212; G0463

== ENCOUNTER → 2021-02-11 | Outpatient (CLI) | payer MEDICARE ==
[~2021-02-11] MED LIST changes: +IOHEXOL 180 MG/ML 10 ML VIAL. ONE; +methylPREDNISolone ACETATE 40 MG/ML VIAL. ONE; +methylPREDNISolone ACETATE 80 MG/ML VIAL. ONE
--- NOTE | 2021-02-11 10:21 | PDOC ---
Progress Note - Pain Clinic Date of Service: DOS: DATE: 02/11/21 TIME: 10:18 Diagnosis: Dx: Lumbar radiculopathy with lumbar degenerative disc disease History or Present Illness: HPI: 75-year-old male returns for follow-up status post lumbar epidural to injection x1. Patient reports a significant reduction in the pain by about 75% pain returning now to about a 50% level still in the low back and right lower extremity posterior gluteus posterior lateral thigh lateral anterior thigh anteromedial thigh medial lower leg as well as the foot on the right side patient reports is worse with walking standing changing positions better with sitting or laying down generally is not awakening from sleep at night patient reports initially was doing much better distance walking doing household activities try with greater ease and comfort patient rates his pain is a 6 on scale 10 is worse over this past week for an average 2 at its least and is a 4 today. Patient scribes pain is aching and sharp in the low back dull in the leg and radiating with constant pain at times with activity. Patient reports no bowel or bladder incontinence no loss of motor function but fatigability of the right leg with walking, which is becoming more noticeable. Physical Exam: VS: Blood pressure is 120/75 pulse 76 respirations 18 temperature 98.2 F height 5 feet 10 inches weight is 174 pounds PE: PHYSICAL EXAMINATION: GENERAL: The patient is awake, alert, oriented, appropriate, very pleasant in demeanor HEENT: Shows normocephalic, atraumatic. Extraocular movements are intact and symmetrical. Oral cavity: Mucous membranes moist and pink. Dentition is intact. NECK: Shows anterior throat supple without palpable lymphadenopathy noted. Swallow reflex symmetrical. CHEST: Shows normal on inspection. Breath sounds are clear bilaterally, no rales or rhonchi. HEART: Shows S1, S2 clear. No murmurs auscultated. ABDOMEN: Soft, nontender, nondistended. No palpable organomegaly is noted. BACK: Shows spine grossly in the midline. Normal-appearing cervical lordotic curvature. There is slightly increased thoracic kyphosis, some minor flattening of the lumbar lordotic curvature. Lumbar paraspinous muscles show symmetrical on inspection, on palpation shows some moderate tenderness diffusely throughout the upper, middle and lower distribution of the paraspinous muscles, but without specific trigger points, without radiation of pain. The patient has good rotational motion of the lumbar spine, both laterally as well as extension and flexion without significant difficulty. EXTREMITIES: Lower extremities show deep tendon reflexes 1+ in the patellar and tendo calcaneus tendons. Motor exam is 4 on a scale of 5 with right dorsiflexion, extension, quadriceps and hamstring flexion and 5/5 on the left. Peripheral pulses are 1+ posterior tibial. No peripheral edema is noted bilaterally. Lower extremities are warm and dry. SKIN: Shows warm and dry, good turgor. No edema. No sores, rashes or bruising throughout. Procedure: Procedure: Options were discussed with patient. Patient chart reviewed his current medication regimen updated current review of systems updated today as well. We will proceed with a lumbar epidural steroid injection today with fluoroscopic guidance. Risks were discussed including but not limited to: Bleeding, infection, possibility of epidural hematoma and subsequent neurological compromise, dural puncture, headaches, spinal cord and/or nerve damage, side effects of steroid medication, and poor results regarding pain control. Patient understands and wished to proceed. Patient will return to the clinic in approximate 2 weeks for follow-up, was counseled return appointment, activity level, and side effects beware of. Medication Injected: Med Injected: Procedure is lumbar epidural steroid injection under local anesthetic using sterile prep and drape at the L4-5 level using C-arm fluoroscopic guidance in both AP and lateral views medications injected is 120 mg Depo-Medrol +10mL preservative-free normal saline and 2 mL contrast- condition at discharge is stable patient tolerated procedure well had no complications. Condition at Discharge: Condition at Discharge: Condition at discharge stable, paced tolerated procedure well and had no complications. SOTERO JONES MD Feb 11, 2021 10:21
--- NOTE | 2021-02-11 10:22 | PDOC4 ---
Procedure Note: ICD 10 Code: ICD 10 Code: M54.16 M51.36 Procedure Note: Patient was consented for lumbar epidural steroid traction with fluoroscopic guidance. Risks were discussed including but not limited to: Bleeding, infection, possibility of epidural hematoma and subsequent neurological compromise, dural puncture, headaches, spinal cord and/or nerve damage, side effects of steroid medication, and poor results regarding pain control. Patient understands and wished to proceed. Procedure is lumbar epidural steroid injection under local anesthetic using sterile prep and drape at the L4-5 level using C-arm fluoroscopic guidance in both AP and lateral views medications injected is 120 mg Depo-Medrol +10mL preservative-free normal saline and 2 mL contrast- condition at discharge is stable patient tolerated procedure well had no complications. SOTERO JONES MD Feb 11, 2021 10:22
== END | disposition home or self-care (01) ==
LOC: PNCL 09:36
PROVIDERS: ATTEND Anesthesiology
DX: M51.16 Intervertebral disc disorders with radiculopathy, lumbar region (principal); Z79.899 Other long term (current) drug therapy
CPT/HCPCS: 62323; J1030; J1040; Q9965